=== PATIENT | male | born 1970 | race African-American/Black ===

== ENCOUNTER 2024-02-26 20:50 | Emergency (ER) | payer SELFPAY ==
[~2024-02-26] VITALS: Ht 182.9 cm; Wt 109.0 kg
[2024-02-26 20:56] VITALS: TEMP 98.5; O2SAT 97
[2024-02-26 22:00] VITALS: BP 126/85; PULSE 80; RESP 16
[2024-02-26 22:36] LABS: CLARITY URINE CLEAR (CLEAR); COLOR URINE YELLOW (YELLOW); GLUCOSE URINE NEGATIVE (NEGATIVE); KETONES URINE NEGATIVE (NEGATIVE); LEUKOCYTE ESTERASE URINE NEGATIVE (NEGATIVE); NITRITE URINE NEGATIVE (NEGATIVE); OCCULT BLOOD URINE NEGATIVE (NEGATIVE); PROTEIN URINE NEGATIVE (NEGATIVE); SPECIFIC GRAVITY URINE 1.018 (1.005-1.030); UROBILINOGEN URINE 0.2 E.U./dL (0.2-1.0)
[2024-02-27] MEDS ORDERED: TAMS-11 PO (00:12)
== END 2024-02-27 00:53 | disposition home or self-care (01) ==
LOC: ER 20:50
DX: R33.9 Retention of urine, unspecified (principal); Z98.890 Other specified postprocedural states; Z88.6 Allergy status to analgesic agent
CPT/HCPCS: 81003; 99283